=== PATIENT | female | born 1995 | race Caucasian/White ===

== ENCOUNTER 2018-11-10 11:53 | Emergency (ER) | payer MEDICAID, OTHER ==
[~2018-11-10] VITALS: Ht 157.5 cm; Wt 48.0 kg
[2018-11-10] MEDS ORDERED: ALBUTEROL (0.083%) 2.5MG/3ML NEB HHN STA (18:57)
[2018-11-10] MEDS ORDERED: KETOROLAC 60MG/2ML VIAL IM ONE (19:00)
[2018-11-10 19:37] LABS: CLARITY URINE CLOUDY (CLEAR); COLOR URINE DARK YELLOW (YELLOW); KETONES URINE 3+ (NEGATIVE); LEUKOCYTE ESTERASE URINE NEGATIVE (NEGATIVE); NITRITE URINE NEGATIVE (NEGATIVE); OCCULT BLOOD URINE NEGATIVE (NEGATIVE); PH URINE 5.5 (4.5-8.0); PROTEIN URINE 2+ (NEGATIVE); SPECIFIC GRAVITY URINE 1.035 (1.005-1.030)
[2018-11-10 21:39] LABS: BASOPHILS % 0.2 % (0.0-2.0); EOSINOPHILS % 0.9 % (0.0-5.0); HEMATOCRIT. 37.3 % (36.0-48.0); HEMOGLOBIN. 12.4 g/dL (12.0-16.0); LYMPHOCYTES % 8.2 % (20.0-50.0); MEAN CORPUSCULAR HEMOGLOBIN 30.2 pg (28.0-32.0); MEAN CORPUSCULAR VOLUME 91.1 fL (81.0-99.0); MEAN PLATELET VOLUME 7.9 fl (7.4-10.4); MONOCYTES % 7.2 % (2.0-8.0); NEUTROPHILS % 83.5 % (40.0-76.0); PLATELET 392 x1000/uL (130-400); RED CELL DISTRIBUTION WIDTH 13.1 % (11.6-14.6)
[2018-11-10 21:45] LABS: CHLORIDE 100 mEq/L (98-107)
[2018-11-10 22:20] VITALS: BP 118/80
== END 2018-11-10 23:22 | disposition home or self-care (01) ==
LOC: ER 11:53
DX: J18.9 Pneumonia, unspecified organism (principal); R10.9 Unspecified abdominal pain
CPT/HCPCS: 36415; 71046; 80048; 81003; 81025; 85025; 96372; 99284; J1885